=== PATIENT | male | born 1985 | race Caucasian/White ===

== ENCOUNTER 2017-05-12 13:47 | Day surgery (SDC) | payer OTHER ==
[2017-05-10 10:24] VITALS: BP 140/94
[~2017-05-12] VITALS: Ht 182.9 cm; Wt 118.1 kg
[~2017-05-12 13:47] MED LIST: ALLEGRA PO; BIFI4CAP PO; BUPIVACAINE/PF 0.5% ONE; CALCIUM PO; CETI10TA24 PO; EPINEPHRINE 1 MG/ML, 1ML ONE; LIDOCAINE/PF 1%, 30ML ONE; PRILOSEC PO
[2017-05-12] MEDS ORDERED: PROMETHAZINE 25 MG/ML, 1ML IV PRN (14:30)
[2017-05-12] MEDS ORDERED: ACETAMINOPHEN 325 MG TABLET PO PRN (14:30)
[2017-05-12] MEDS ORDERED: LABETALOL 5MG/ML, 20ML IV PRN (14:30)
[2017-05-12] MEDS ORDERED: EPHEDRINE 50 MG/ML, 1ML IVPush PRN (14:30)
[2017-05-12] MEDS ORDERED: MEPERIDINE/PF 25MG/0.5ML IVPush PRN (14:30)
[2017-05-12] MEDS ORDERED: ONDANSETRON 2MG/ML, 2ML IVPush PRN (14:30)
[2017-05-12] MEDS ORDERED: hydrALAzine 20 MG/ML, 1ML IV PRN (14:30)
[2017-05-12] MEDS ORDERED: ALBUTEROL SULFATE 2.5 MG/3 ML NPPB PRN (14:30)
[2017-05-12] MEDS ORDERED: OXYcodone 5 MG/5 ML ORAL.SOL UDC PO PRN (14:30)
[2017-05-12] MEDS ORDERED: HYDROmorphone 1 MG/ML, 1ML IV PRN (14:30)
[2017-05-12] MEDS ORDERED: LACTATED RINGERS 1,000 ML IV SCH (14:43)
[2017-05-12 14:45] VITALS: BP 140/94
[2017-05-12] MEDS ORDERED: FENTANYL PF 250 MCG/5ML ONE (15:57)
[2017-05-12] MEDS ORDERED: MIDAZOLAM 1 MG/ML, 2ML ONE (15:57)
[2017-05-12] MEDS ORDERED: CEFAZOLIN 1,000 MG ONE ×2 (15:59)
[2017-05-12] MEDS ORDERED: PROPOFOL 10 MG/ML, 20ML ONE (15:59)
[2017-05-12] MEDS ORDERED: ONDANSETRON 2MG/ML, 2ML ONE ×2 (15:59→17:19)
[2017-05-12] MEDS ORDERED: DEXAMETHASONE 4 MG/ML, 1ML ONE ×2 (15:59)
[2017-05-12] MEDS ORDERED: METOCLOPRAMIDE 5 MG/ML, 2ML ONE (16:46)
[2017-05-12] MEDS ORDERED: KETOROLAC 30 MG/1 ML ONE ×2 (16:54)
[2017-05-12] MEDS ORDERED: METOPROLOL 1 MG/ML, 5ML ONE (17:04)
[2017-05-12] MEDS: METOPROLOL 1 MG/ML, 5ML IV PRN ×3 (17:05→17:15)
[2017-05-12] MEDS ORDERED: ACETAMINOPHEN 650 MG/20.3 ML UDC ONE (17:33)
[2017-05-12] MEDS ORDERED: FENTANYL PF 100 MCG/2ML ONE (17:33)
[2017-05-12] MEDS ORDERED: OXYcodone 5 MG/5 ML ORAL.SOL UDC ONE (17:34)
[2017-05-12] MEDS: FENTANYL PF 100 MCG/2ML IV PRN ×2 (17:35→17:45)
[2017-05-12] MEDS ORDERED: OXYcodone IR 5MG TABLET PO ONE (19:30)
[2017-05-12] MEDS ORDERED: HYDR-3307 PO (20:12)
[2017-05-13] MEDS ORDERED: CETIRIZINE 10 MG TABLET PO SCH (09:00)
== END 2017-05-12 20:45 | disposition home or self-care (01) ==
LOC: OR 13:47 → 4NOR 18:26 → OR 20:45
PROVIDERS: ATTEND Orthopaedic Surgery
DX: M22.42 Chondromalacia patellae, left knee (principal); J45.909 Unspecified asthma, uncomplicated; E66.9 Obesity, unspecified; K21.9 Gastro-esophageal reflux disease without esophagitis; Z88.1 Allergy status to other antibiotic agents; Z88.8 Allergy status to other drugs, medicaments and biological substances
CPT/HCPCS: 29877; J0171; J0690; J1100; J1885; J2250; J2405; J2704; J2765; J3010; J3490; J7120

== ENCOUNTER 2017-06-09 11:29 | Day surgery (SDC) | payer OTHER ==
[~2017-06-09] VITALS: Ht 182.9 cm; Wt 120.5 kg
[~2017-06-09 11:29] MED LIST changes: +HYDR-3307 PO; -LIDOCAINE/PF 1%, 30ML ONE
[2017-06-09 11:56] VITALS: BP 132/88
[2017-06-09] MEDS ORDERED: LACTATED RINGERS 1,000 ML IV SCH (12:32)
[2017-06-09] MEDS ORDERED: MIDAZOLAM 1 MG/ML, 2ML ONE (12:54)
[2017-06-09] MEDS ORDERED: PROPOFOL 10 MG/ML, 20ML ONE (12:54)
[2017-06-09] MEDS ORDERED: DEXAMETHASONE 4 MG/ML, 1ML ONE (12:54)
[2017-06-09] MEDS ORDERED: FENTANYL PF 250 MCG/5ML ONE (12:54)
[2017-06-09] MEDS ORDERED: CEFAZOLIN 1,000 MG ONE ×2 (12:54→13:30)
[2017-06-09] MEDS ORDERED: ONDANSETRON 2MG/ML, 2ML ONE (12:54)
[2017-06-09] MEDS ORDERED: MEPERIDINE/PF 25MG/0.5ML IVPush PRN (13:30)
[2017-06-09] MEDS ORDERED: ALBUTEROL/IPRATROPIUM 2.5MG/0.5MG, 3 ML NPPB PRN (13:30)
[2017-06-09] MEDS ORDERED: hydrALAzine 20 MG/ML, 1ML IV PRN (13:30)
[2017-06-09] MEDS ORDERED: METOCLOPRAMIDE 5 MG/ML, 2ML IV PRN (13:30)
[2017-06-09] MEDS ORDERED: ONDANSETRON 2MG/ML, 2ML IVPush PRN (13:30)
[2017-06-09] MEDS ORDERED: MIDAZOLAM 1 MG/ML, 2ML IV PRN (13:30)
[2017-06-09] MEDS ORDERED: PROMETHAZINE 25 MG/ML, 1ML IV PRN (13:30)
[2017-06-09] MEDS ORDERED: LABETALOL 5MG/ML, 20ML IV PRN (13:30)
[2017-06-09] MEDS ORDERED: ACETAMINOPHEN 325 MG TABLET PO PRN (13:30)
[2017-06-09] MEDS ORDERED: HYDROmorphone 1 MG/ML, 1ML IV PRN (13:30)
[2017-06-09] MEDS ORDERED: OXYcodone 5 MG/5 ML ORAL.SOL UDC PO PRN (13:30)
[2017-06-09] MEDS ORDERED: LORazepam 2 MG/ML, 1ML IVPush PRN (13:30)
[2017-06-09] MEDS ORDERED: DIAZEPAM 5 MG/ML, 2ML IVPush PRN (13:30)
[2017-06-09] MEDS ORDERED: ACETAMINOPHEN 650 MG/20.3 ML UDC ONE (13:45)
[2017-06-09] MEDS ORDERED: FENTANYL PF 100 MCG/2ML ONE (13:46)
[2017-06-09] MEDS ORDERED: OXYcodone 5 MG/5 ML ORAL.SOL UDC ONE (13:46)
[2017-06-09] MEDS: FENTANYL PF 100 MCG/2ML IV PRN ×2 (13:48→14:09)
[2017-06-09] MEDS ORDERED: KETOROLAC 30 MG/1 ML ONE (14:02)
[2017-06-09] MEDS ORDERED: HYDROmorphone 2 MG/ML, 1ML ONE (14:07)
[2017-06-10] MEDS ORDERED: BIFIDOBACTERIUM INFANTIS 4 MG PO SCH (09:00)
[2017-06-10] MEDS ORDERED: CETIRIZINE 10 MG TABLET PO SCH (09:00)
== END 2017-06-09 15:20 | disposition home or self-care (01) ==
LOC: OUT 11:29
PROVIDERS: ATTEND Orthopaedic Surgery
DX: T84.84XA Pain due to internal orthopedic prosthetic devices, implants and grafts, initial encounter (principal); G89.18 Other acute postprocedural pain; M25.572 Pain in left ankle and joints of left foot; Y83.1 Surgical operation with implant of artificial internal device as the cause of abnormal reaction of the patient, or of later complication, without mention of misadventure at the time of the procedure; Y92.89 Other specified places as the place of occurrence of the external cause; Z88.2 Allergy status to sulfonamides; Z79.899 Other long term (current) drug therapy
CPT/HCPCS: 20680; J0171; J0690; J1100; J1170; J1885; J2250; J2405; J2704; J3010; J3490; J7120

== ENCOUNTER 2017-09-20 16:48 | Emergency (ER) | payer OTHER ==
[~2017-09-20] VITALS: Ht 182.9 cm; Wt 120.5 kg
[~2017-09-20 16:48] MED LIST changes: -BUPIVACAINE/PF 0.5% ONE; -EPINEPHRINE 1 MG/ML, 1ML ONE
[2017-09-20] MEDS ORDERED: SODIUM CHLORIDE FLUSH 10ML SYR IVF ONE (18:00)
[2017-09-20] MEDS ORDERED: ONDANSETRON ODT 4 MG PO ONE (18:00)
[2017-09-20 18:05] LABS: ALBUMIN 3.9 g/dL (3.4-5.0); ANION GAP 12 mmol/L (5-15); CHLORIDE 107 mmol/L (98-107)
[2017-09-20 18:13] LABS: BASOPHILS # (AUTO) 0.04 x10^3/uL (0-0.1); BASOPHILS % (AUTO) 0 % (0-1); CREATININE 1.33 mg/dL (0.7-1.3); EOSINOPHILS # (AUTO) 0.15 x10^3/uL (0-0.4); EOSINOPHILS % (AUTO) 1 % (1-7); LYMPHOCYTES # (AUTO) 2.74 x10^3/uL (1-3.4); LYMPHOCYTES % (AUTO) 26 % (22-44); MD NO; MEAN CORPUSCULAR HEMOGLOBIN 32.6 pg (27.5-34.5); MEAN CORPUSCULAR HGB CONC 34.5 g/dL (33.2-36.2); MEAN CORPUSCULAR VOLUME 94.4 fL (81-97); MEAN PLATELET VOLUME 9.8 fL (7.4-10.4); MONOCYTES # (AUTO) 0.79 x10^3/uL (0.2-0.8); MONOCYTES % (AUTO) 8 % (2-9); NEUTROPHILS # (AUTO) 6.79 x10^3/uL (1.8-6.8); NEUTROPHILS % (AUTO) 65 % (42-75); PLATELET COUNT 210 x10^3/uL (130-400); RED CELL DISTRIBUTION WIDTH 12.2 % (9.4-14.8); T4 (THYROXINE) 10.2 mcg/dL (4.5-12.1); TROPONIN I < 0.015 ng/mL (0.000-0.045)
[2017-09-20] MEDS ORDERED: OMNIPAQUE 350 MG/ML, 100ML BOTTLE ONE (19:13)
[2017-09-20 19:58] VITALS: BP 124/71
== END 2017-09-20 20:00 | disposition home or self-care (01) ==
LOC: ED 19:50
DX: R00.2 Palpitations (principal); R07.89 Other chest pain
CPT/HCPCS: 36415; 71046; 71275; 80048; 82040; 84436; 84443; 84484; 85025; 93005; 99285; Q9967